=== PATIENT | female | born 1990 | race African-American/Black ===

== ENCOUNTER 2023-11-27 15:01 | Outpatient (CLI) | payer OTHER | END 2023-11-27 15:05 | disposition home or self-care (01) | LOC: PRENATAL 15:01 | PROVIDERS: ATTEND Obstetrics & Gynecology Maternal & Fetal Medicine | DX: O35.9XX0 Maternal care for (suspected) fetal abnormality and damage, unspecified, not applicable or unspecified (principal); O35.3XX0 Maternal care for (suspected) damage to fetus from viral disease in mother, not applicable or unspecified; O44.02 Complete placenta previa NOS or without hemorrhage, second trimester; O34.219 Maternal care for unspecified type scar from previous cesarean delivery; Z3A.21 21 weeks gestation of pregnancy; Z87.51 Personal history of pre-term labor ==

== ENCOUNTER 2024-01-15 14:04 | Outpatient (CLI) | payer OTHER | END 2024-01-15 14:05 | disposition home or self-care (01) | LOC: PRENATAL 14:04 | PROVIDERS: ATTEND Obstetrics & Gynecology Maternal & Fetal Medicine | DX: O26.849 Uterine size-date discrepancy, unspecified trimester (principal); O34.219 Maternal care for unspecified type scar from previous cesarean delivery; Z3A.28 28 weeks gestation of pregnancy ==

== ENCOUNTER 2024-02-26 15:16 | Outpatient (CLI) | payer OTHER | END 2024-02-26 15:17 | disposition home or self-care (01) | LOC: PRENATAL 15:16 | PROVIDERS: ATTEND Obstetrics & Gynecology Maternal & Fetal Medicine | DX: O26.849 Uterine size-date discrepancy, unspecified trimester (principal); O36.8199 Decreased fetal movements, unspecified trimester, other fetus; O34.219 Maternal care for unspecified type scar from previous cesarean delivery; Z3A.34 34 weeks gestation of pregnancy ==